=== PATIENT | female | born 1965 | race Caucasian/White ===

== ENCOUNTER 2017-05-15 09:45 | Day surgery (SDC) | payer OTHER ==
[~2017-05-15] VITALS: Ht 182.9 cm; Wt 86.2 kg
[~2017-05-15 09:45] MED LIST: BUSPAR10 MG PO; PRINZIDE 20-121 EACH PO; ZOLOFT100 MG PO
[2017-05-15 10:31] LABS: HEMOGLOBIN 14.7 G/DL (11.9-15.5); MCH 30.2 PG (29.0-34.0); MCHC 33.4 G/DL (30.0-36.0); MCV 90.5 FL (83-99); PLATELET COUNT 293 K/uL (156-360); RBC DIS.WIDTH-CV 12.9 % (11.8-14.6); RBC DIS.WIDTH-SD 42.2 % (39-53); RED BLOOD COUNT 4.86 M/uL (3.80-5.20); WHITE BLOOD COUNT 8.1 K/uL (4.1-10.2)
[2017-05-15 10:42] VITALS: BP 127/73
[2017-05-15 11:07] LABS: ALBUMIN 4.6 G/DL (3.2-4.8); CHLORIDE 102 MEQ/L (99-109); POTASSIUM 5.4 MEQ/L (3.7-5.4); SODIUM 135 MEQ/L (136-147); TOTAL BILIRUBIN 0.4 MG/DL (0.0-1.0)
[2017-05-15 11:13] LABS: ALKALINE PHOSPHATASE 49 IU/L (3-129); ALT (GPT) 14 IU/L (3-49); AST (GOT) 20 IU/L (2-34); CREATININE 0.7 MG/DL (0.6-1.3); GFR ESTIMATE (CALCULATED) > 59 mL/min/; GLUCOSE 112 mg/dL (70-99); TOTAL PROTEIN 7.9 G/DL (6.4-8.3); UREA NITROGEN (BUN) 30 mg/dL (9-23)
[2017-05-15 15:05] VITALS: BP 111/77
[2017-05-15 15:43] VITALS: BP 128/81
== END 2017-05-15 15:45 | disposition home or self-care (01) ==
LOC: SDC 09:45
PROVIDERS: Ophthalmology
DX: H43.392 Other vitreous opacities, left eye (principal); H43.812 Vitreous degeneration, left eye; H35.342 Macular cyst, hole, or pseudohole, left eye; H35.372 Puckering of macula, left eye; I10 Essential (primary) hypertension; F41.9 Anxiety disorder, unspecified; E05.00 Thyrotoxicosis with diffuse goiter without thyrotoxic crisis or storm; Z87.891 Personal history of nicotine dependence; Z85.3 Personal history of malignant neoplasm of breast
CPT/HCPCS: 80053; 85027; 93005; J0690; J1100; J1170; J2250; J2765; J2795; J3010; J3300

== ENCOUNTER 2017-08-03 05:14 | Day surgery (SDC) | payer OTHER ==
[~2017-08-03] VITALS: Ht 182.9 cm; Wt 66.0 kg
[2017-08-03 06:13] VITALS: BP 127/87
[2017-08-03] MEDS ORDERED: MOTRIN IB200 MG PO (06:26)
[2017-08-03 06:29] LABS: CHLORIDE 100 mEq/L (99-109); POTASSIUM 4.1 mEq/L (3.7-5.4); SODIUM 136 mEq/L (136-147)
[2017-08-03 06:30] LABS: GLUCOSE 116 mg/dL (70-99)
[2017-08-03 06:34] LABS: CREATININE 0.8 mg/dL (0.6-1.3); GFR ESTIMATE (CALCULATED) > 59 mL/min/
[2017-08-03 06:35] LABS: UREA NITROGEN (BUN) 22 mg/dL (9-23)
[2017-08-03 09:14] VITALS: BP 124/77
[2017-08-03 09:51] VITALS: BP 153/72
== END 2017-08-03 10:05 | disposition home or self-care (01) ==
LOC: SDC 05:14
PROVIDERS: Ophthalmology
DX: H43.811 Vitreous degeneration, right eye (principal); H43.391 Other vitreous opacities, right eye; H35.341 Macular cyst, hole, or pseudohole, right eye; I10 Essential (primary) hypertension; E05.00 Thyrotoxicosis with diffuse goiter without thyrotoxic crisis or storm; Z85.3 Personal history of malignant neoplasm of breast; Z87.891 Personal history of nicotine dependence
CPT/HCPCS: 80048; J0690; J1100; J2250; J2405; J2765; J2795; J3010; J7643